=== PATIENT | male | born 1965 | race Caucasian/White ===

== ENCOUNTER → 2017-12-03 | Outpatient (CLI) | payer BC, OTHER ==
--- NOTE | 2017-12-04 08:30 | MRI ---
EXAM DESCRIPTION: Shoulder,Left: MRI. CLINICAL HISTORY: PAIN LT SHOULDER COMPARISON: None. TECHNIQUE: Multiplanar, high-field MRI, multiple sequences, without contrast: Shoulder. . Technically difficult study due to patient motion and blurring artifact. FINDINGS: Intermediate signal in the undersurface of the distal supraspinatus and infraspinatus tendons with minimal edema signal in the tendon. Also edema in the musculotendinous junction of the supraspinatus. Normal marrow signal in the humeral head. No subacromial-subdeltoid bursal fluid. No significant supraspinatus muscle atrophy. Remaining tendons of the rotator cuff with normal signal. Subcoracoid bursal effusion. Type II curvature of the lateral acromion. Ligaments of the coracoacromial arch are intact. No downsloping of the lateral acromion. No AC joint effusion. Minimal effusion in the glenohumeral joint. Focal fluid signal in the anterior mid glenoid labrum and minimal fluid signal more elongated in the inferior labrum. Anterior location of the bicipital labral anchor. Long head biceps tendon within the bicipital groove. No subchondral lesions on the humeral head or glenoid. IMPRESSION: 1. Possible focal labral tear anterior mid glenoid labrum and more diffuse tear inferior mid labrum. Minimal glenohumeral joint effusion. Consider MR arthrography. 2. Degenerative changes and more acute tendinitis in the supraspinatus and infraspinatus tendons. No rotator cuff tear. 3. Minimal curvature of the lateral acromion but no significant flattening of the coracoacromial arch. Subcoracoid bursitis. Electronically signed by: Fam Cruz MD 12/04/2017 8:28 AM CDT
== END ==
LOC: MRI 07:30
PROVIDERS: ATTEND Family Medicine
DX: S43.492A Other sprain of left shoulder joint, initial encounter (principal)

== ENCOUNTER → 2018-02-04 | Outpatient (CLI) | payer OTHER ==
--- NOTE | 2018-02-04 15:08 | RAD ---
EXAM DESCRIPTION: Shoulder,Left 2 or More Views CLINICAL HISTORY: 52 years Male, M25.512 COMPARISON: MRI of the left shoulder dated 12/03/2017. FINDINGS: The visualized bones are well-mineralized.No acute fracture or dislocation. The soft tissues appear grossly unremarkable. IMPRESSION: Grossly normal radiographs of the left shoulder. Electronically signed by: Rhianna Ross MD 02/04/2018 3:07 PM CDT
== END ==
LOC: RAD 09:44
PROVIDERS: ATTEND Orthopaedic Surgery
DX: M25.512 Pain in left shoulder (principal)

== ENCOUNTER → 2019-01-09 | Outpatient (CLI) | payer BC | LOC: GMAH 10:43 | PROVIDERS: ATTEND Family Medicine | DX: E78.2 Mixed hyperlipidemia (principal); E11.40 Type 2 diabetes mellitus with diabetic neuropathy, unspecified; Z12.5 Encounter for screening for malignant neoplasm of prostate ==